=== PATIENT | female | born 2000 | race Caucasian/White ===

== ENCOUNTER 2023-01-14 06:32 | Inpatient (IN) | payer OTHER ==
[2023-01-14] VITALS (26 sets, daily range): BP systolic 95–142; BP diastolic 51–88; PULSE 59–103; TEMP 97.9–98.4
[~2023-01-14] VITALS: Ht 157.5 cm; Wt 59.5 kg
[~2023-01-14 06:32] MED LIST: MAG-OX 400400 MG/TAB PO; PRENATAL TABLET PO
--- NOTE | 2023-01-14 06:40 | NUR ---
PT AMBULATORY TO UNIT WITH SPOUSE, ORIENTED TO ROOM AND PLAN OF CARE. PT REPORTS FEELING CONTRACTIONS, MOVEMENT, AND NO LOF. VS STABLE, PT COMFORTABLE.
[2023-01-14] MEDS ORDERED: MAGNESIUM CITR100 MG PO (07:03)
--- NOTE | 2023-01-14 07:30 | NUR ---
PT AMBULATE TO BATHROOM. UNABLE TO TRACE EFM AND TOCO. PT COMFORTABLE.
[2023-01-14 07:41] LABS: BASO % 0.3 % (0.0-2.0); EOS # 0.1 K/mm3 (0.0-0.7); EOS % 1.1 % (0.0-4.0); GRAN # 7.2 K/mm3 (1.4-6.5); GRAN % 71.1 % (42.2-75.2); HEMATOCRIT 39.3 % (37.0-47.0); HEMOGLOBIN 13.9 g/dl (12.5-16.0); LYMPH # 2.3 K/mm3 (1.2-3.4); LYMPH % 22.4 % (20.0-51.0); MEAN CELL VOLUME 90 fl (80.0-100.0); MEAN CORPUSCULAR HEMOGLOBIN 32 pg (27-31); MEAN CORPUSCULAR HGB CONC 35 g/dl (33.0-37.0); MEAN PLATELET VOLUME 11.4 fl (7.4-10.4); MONO # 0.5 K/mm3 (0.1-0.6); MONO % 4.8 % (1.7-9.3); PLATELET COUNT 146 K/mm3 (130-400); RED BLOOD COUNT 4.36 M/mm3 (4.10-5.30); REDCELL DISTRIBUTION WIDTH-CV 12.5 % (11.5-14.5)
--- NOTE | 2023-01-14 08:28 | NUR ---
DR. LEONARD AT BEDSIDE, /-2. VS STABLE, EFM CAT 1. PT REQUESTS TO WAIT FOR AROM. VORB PER DR LEONARD INCREASE PIT TO MAX OF 10MU TO ALLOW PT ATTEMPT AT UNBLOCKED L&D PER PT REQUEST.
--- NOTE | 2023-01-14 09:32 | NUR ---
[id number] DIFFICULTY TRACING EFM AND TOCO DUE TO PT ON BIRTHING BALL.
--- NOTE | 2023-01-14 09:45 | NUR ---
PT AMBULATE TO BATHROOM. EFM AND TOCO DISCONNECTED, UNABLE TO TRACE. EFM CAT 1, VS STABLE. PT COMFORTABLE.
--- NOTE | 2023-01-14 12:50 | NUR ---
SROM WITH CLEAR FLUID AT THIS TIME
--- NOTE | 2023-01-14 14:39 | NUR ---
1439: AT BEDSIDE, PT REPORTS URGE TO PUSH, SVE COMPLETE/+2 STATION. ALL APPROPRIATE STAFF AT BEDSIDE. PT REMAINS UNBLOCKED AND UNABLE TO CONTROL URGE TO CONTINUOUSLY PUSH. 1441: OF VIABLE FEMALE AT THIS TIME, TIGHT NUCHAL NOTED AT DELIVERY, INFANT DELIVERED THROUGH. PLACED ON MATERNAL ABODMEN TO ALLOW FOR DELAYED CORD CLAMPING. DAWN ROCHE,RN ASSUMES CARE OF . 1443: CORD CLAMPED X2 AND CUT BY FOB. SKIN TO SKIN UPON REQUEST WITH MOTHER. STRONG CRY NOTED. LOCHIA WNL. MATERNAL VITAL SIGNS STABLE. 1445: OF INTACT PLACENTA. PITOCIN BOLUS INFUSING PER PROTOCOL. MODERATE LOCHIA, NO CLOTS. FUNDUS FIRM 1FB BELOW UMBILICUS. PERINEUM REMAINS INTACT, NO SUTURES NEEDED. MATERNAL VITAL SIGNS REMAIN STABLE. WILL CONTINUE WITH PP CARES PER PROTOCOL.
[2023-01-15 04:35] VITALS: BP 103/59; PULSE 62; TEMP 97.9
[2023-01-15 08:50] VITALS: BP 106/71; PULSE 73; TEMP 98.1
--- NOTE | 2023-01-15 10:28 | NUR ---
Initial visit attempt; Family resting, Rehab Physician left card offering congratulations and God's blessings for the of their daughter and information regarding the availability of Spiritual Care at our hospital.
--- NOTE | 2023-01-15 10:35 | NUR ---
this RN gets report from Carlos Lizama LPN
[2023-01-15 12:00] VITALS: BP 94/51; PULSE 79; TEMP 97.7
== END 2023-01-15 16:58 | disposition home or self-care (01) | DRG 807 ==
LOC: OB 06:32 → LDR 06:32 → OB 10:25
PROVIDERS: ADMIT Obstetrics & Gynecology
PROC: 10E0XZZ Delivery of Products of Conception, External Approach (ICD-10-PCS; principal; 2023-01-14)
PROC: 3E033VJ Introduction of Other Hormone into Peripheral Vein, Percutaneous Approach (ICD-10-PCS; 2023-01-14)
DX: O36.5930 Maternal care for other known or suspected poor fetal growth, third trimester, not applicable or unspecified (principal); Z37.0 Single live birth; O99.02 Anemia complicating childbirth; D64.9 Anemia, unspecified; O99.820 Streptococcus B carrier state complicating pregnancy; O69.1XX0 Labor and delivery complicated by cord around neck, with compression, not applicable or unspecified; Z3A.40 40 weeks gestation of pregnancy
CPT/HCPCS: J2540; J2590; J7120